=== PATIENT | male | born 1990 | race Caucasian/White ===

== ENCOUNTER 2016-12-08 11:14 | Emergency (ER) | payer MEDICAID ==
[2016-12-08 11:21] VITALS: BP 104/56; PULSE 66; RESP 16; TEMP 97.5; O2SAT 98
--- NOTE | 2016-12-08 11:58 | EDPHY ---
H & P Stated Complaint: reddness to R thigh ?bite HPI/ROS: CHIEF COMPLAINT: Right thigh wound HISTORY OF PRESENT ILLNESS: Patient complains of a right thigh possible abscess. Noticed this several days ago. [id number] pain in the area. There is a central area of drainage that has stopped draining. No fever chills. No pain when using the extremity. He is here is he is concerned that he does want to get worse. No trauma or injury. No vector inoculation that he knows of. He does not shave his legs. No other associated complaints or modifying factors. REVIEW OF SYSTEMS: Ten systems reviewed and are negative unless otherwise noted in the HPI EXAMINATION General Appearance: Alert, no distress Cardiovascular: Pulses normal throughout. Symmetric DP pulses 2+ Brisk cap refill Neurological: A&O, sensory symmetric, strength symmetric Skin: Warm and dry. Small area of induration on the right anterior thigh. There is a central area that appeared to be previously draining. No fluctuance. Minimal induration. No surrounding cellulitis. Examination consistent with folliculitis Extremities: Nontender, no pedal edema Psychiatric: Mood and affect normal DIFFERENTIAL DIAGNOSES: Including but not limited to folliculitis, phlegmon, early abscess, cellulitis, ingrown hair MDM: 11:55 a.m. Right thigh folliculitis without complication. No appreciated abscess. No surrounding cellulitis. Treat with topical mupirocin. Also recommend warm compresses and Epsom salt soaks. Return here for any worsening symptoms, fever , chills. He is comfortable with this plan and discharged home stable condition ED Precautions: Worsening pain. Erythema, edema, cyanosis, pallor, paresthesia or anesthesia. SUPERVISION: This patient was independently evaluated without direct examination by the attending physician. Case was discussed with attending physician. Source: Patient Exam Limitations: No limitations - Personal History Current Tetanus/Diphtheria Vaccine: Yes Current Tetanus Diphtheria and Acellular Pertussis (TDAP): Yes - Medical/Surgical History Hx Asthma: No Hx Chronic Respiratory Disease: No Hx Diabetes: No Hx Cardiac Disease: No Hx Renal Disease: No Hx Cirrhosis: No Hx Alcoholism: No Hx HIV/AIDS: No Hx Splenectomy or Spleen Trauma: No Other PMH: pilonidal cyst/sinus surgery - Social History Smoking Status: Current every day smoker Constitutional: Initial Vital Signs Temperature (C) 97.5 F 12/08/16 11:19 Heart Rate 66 06/28/17 11:19 Respiratory Rate 16 12/08/16 11:19 Blood Pressure 104/56 L 12/08/16 11:19 O2 Sat (%) 98 12/08/16 11:19 O2 Delivery Mode Room Air Allergies/Adverse Reactions: No Known Allergies Allergy (Unverified 03/24/16 09:01) Home Medications: Medication Instructions Recorded Ibuprofen [Motrin (*)] 800 mg PO Q6-8PRN #30 tab 03/24/16 Cephalexin 04/05/16 Cephalexin [Keflex (*)] 500 mg PO TID #30 cap 12/08/16 Mupirocin 2% [Bactroban 2%] 1 anthony TOP TID #1 ointtube 12/08/16 Departure - Departure Disposition: Home, Routine, Self-Care Clinical Impression: Folliculitis Condition: Good Instructions: Folliculitis (ED) Additional Instructions: 1. Warm compresses as tolerated as needed 2. Topical mupirocin 3 times daily for 10 days 3. Return here or with primary care physician in 2 days for wound check Referrals: NONE *PRIMARY CARE P,. [Primary Care Provider] - As per Instructions Ventura Rivero DO [Doctor of Osteopathy] - As per Instructions Prescriptions: Cephalexin [Keflex (*)] 500 mg PO TID #30 cap Mupirocin 2% [Bactroban 2%] 1 anthony TOP TID #1 ointtube
== END 2016-12-08 12:05 | disposition home or self-care (01) ==
DX: L73.9 Follicular disorder, unspecified (principal); F17.200 Nicotine dependence, unspecified, uncomplicated